=== PATIENT | female | born 1995 | race Caucasian/White ===

== ENCOUNTER → 2020-03-06 17:22 | Outpatient (CLI) | payer OTHER, SELFPAY ==
--- NOTE | ~2020-03-06 | US_ITS ---
US OB transvaginal DATE: 03/06/2020 17:56 INDICATION: Estimated gestational age determination TECHNIQUE: Real-time imaging and Doppler analysis COMPARISON: None FINDINGS: The uterus measures approximately 7 cm height, 4.3 cm AP and 5 cm transverse dimension. The central endometrial echo measures 12.6 mm. An IUP is not visualized within the endometrial cavity on this examination. There is a complex lesion in the right ovary measuring 1.2 x 1.1 x 1.5 cm. There is a hyperechoic rim . Ectopic gestation must be considered in addition to complicated cyst.. Correlation with serum beta hCG levels and short-term follow-up ultrasound examination are recommended. The right ovary measures 2.2 x 3 x 3.1 cm. The left ovary is not visualized. IMPRESSION: Complicated cystic lesion in the right ovary; differential diagnosis includes ectopic ges tation versus complex cyst. Close correlation with serum beta hCG levels and short-term follow-up ultrasound examination are puma mmended. (Dr. Da Silva attempted to leave a voicemail for Dr. Mckay was unable to do so on there [employer]. Subsequently Dr. Da Silva left a voicemail for Dr. Jha at 0022 hours on 03/07/2020, with request that he contact Dr. Mckay or her staff in the morning with the report findings.) Reviewed, dictated and finalized at [facility]. Reviewed, dictated and finalized at location [facility]. EQUIPMENT OPERATOR IMPRESSION: Complicated cystic lesion in the right ovary; differential diagnosi s includes ectopic gestation versus complex cyst. Close correlation with serum beta hCG levels and short-term follow-up ultrasoun d examination are recommended. (Dr. Da Silva attempted to leave a voicemail for Dr. Mckay was unable to do so on there voicemail system. Subsequently Dr. Da Silva left a voicemail for Dr. Jha a t 0022 hours on 03/07/2020, with request that he contact Dr. Mckay or her staf f in the morning with the report findings.)
== END ==
PROVIDERS: Visit Provider Obstetrics & Gynecology Gynecology
DX: O09.01 Supervision of pregnancy with history of infertility, first trimester (principal); O26.841 Uterine size-date discrepancy, first trimester; Z3A.00 Weeks of gestation of pregnancy not specified
CPT/HCPCS: 76817

== ENCOUNTER 2020-03-09 10:53 | Outpatient (RCR) | payer OTHER, SELFPAY | END 2020-06-05 23:59 | disposition home or self-care (01) | LOC: ANHLAB 10:53 | PROVIDERS: Visit Provider Obstetrics & Gynecology Gynecology | DX: Z32.01 Encounter for pregnancy test, result positive (principal) | CPT/HCPCS: 36415; 84702 ==

== ENCOUNTER 2020-03-12 14:34 | Outpatient (RCR) | payer OTHER, SELFPAY | END 2020-06-10 23:59 | disposition home or self-care (01) | LOC: ANHLAB 14:34 | PROVIDERS: Visit Provider Obstetrics & Gynecology Gynecology | DX: O02.81 Inappropriate change in quantitative human chorionic gonadotropin (hCG) in early pregnancy (principal); Z3A.00 Weeks of gestation of pregnancy not specified | CPT/HCPCS: 36415; 85461 ==

== ENCOUNTER → 2021-01-02 10:36 | Outpatient (CLI) | payer OTHER, SELFPAY ==
--- NOTE | ~2021-01-02 | US_ITS ---
EXAMINATION: US OB transvaginal DATE: 01/02/2021 11:20 INDICATION: Clomid . TECHNIQUE: Real-time transvaginal obstetric ultrasound. FINDINGS: No prior studies for comparison. The uterus measures 8.5 x 5.2 x 5.4 cm. There is an intrauterine gestational sac, with pole loyda ntified. The crown rump length measures .43 cm, which correlates with a estimated gestational age of 6 weeks 1 day. heart tones are identified measuring 123 BPM. No evidence for subchorionic he morrhage. There is a corpus luteal cyst of the right ovary measuring 1.9 cm. Left ovary is unremarkab le. IMPRESSION: 1. SL IUP with an EGA of 6 weeks, 1 days (EDC by current ultrasound of 08/27/2021). Reviewed, dictated and finalized at location A. DMARE FOREMAN IMPRESSION: 1. SL IUP with an EGA of 6 weeks, 1 days (EDC by current ultrasound of 2).
== END ==
PROVIDERS: Visit Provider Obstetrics & Gynecology Gynecology
DX: Z31.83 Encounter for assisted reproductive fertility procedure cycle (principal); Z3A.01 Less than 8 weeks gestation of pregnancy
CPT/HCPCS: 76817

== ENCOUNTER → 2021-04-01 11:09 | Outpatient (CLI) | payer OTHER, SELFPAY ==
--- NOTE | ~2021-04-01 | US_ITS ---
EXAMINATION: US OB /maternal detail DATE: 04/01/2021 11:38 INDICATION: survey TECHNIQUE: Multiple obstetric sonographic images performed. FINDINGS: No prior studies for comparison. There is a single living fetus in breech presentation. The placenta is anterior without placenta pre via. Placental margin 5.6 cm to the cervix. Amniotic fluid volume is normal. cardiac activity and movement is noted with a heart rate of 148 beats per minute. survey limited for evaluation of outflow tracts and kidneys due to early gestational age. The following anatomy was identified as normal: 4 chamber heart 3 vessel cord cord insertion urinary bladder stomach spine diaphragm ventricles cisterna magna cerebellum The following biometric data were obtained: BPD: 41mm corresponds to gestational age 18 weeks 3 days. Head circumference: 154 mm corresponds to gestational age 18 weeks 2 days. Abdominal circumference: 133 mm corresponds to gestational age 18 weeks 5 days. Femur length: 28 mm corresponds to gestational age 18 weeks 5 days. Head circumference to abdominal circumference ratio: 1.16 (normal range for expected gestational age is 1.09-1.27). Estimated weight: 252 grams +/- 38 grams using Hadlock method. IMPRESSION: 1: Single living intrauterine with an estimated gestational age of 18weeks 6days by initial ultrasound measurements, with an EDC of 08/27/2021 in breech presentation. Appropriate interval growth. 2. Survey limited for evaluation of ventricular outflow tracts and the kidneys. Remainder of the taran vey is unremarkable. Recommend attention to the structures on follow-up examination. Reviewed, dictated and finalized at location B. N RESOURCES GENERALIST IMPRESSION: 1: Single living intrauterine with an estimated gestational age of 18 weeks 6days by initial ultrasound measurements, with an EDC of 08/27/2021 in elizabeth ech presentation. Appropriate interval growth. 2. Survey limited for evaluation of ventricular outflow tracts and the kidneys . Remainder of the survey is unremarkable. Recommend attention to the structure s on follow-up examination.
== END ==
PROVIDERS: Visit Provider Obstetrics & Gynecology Gynecology
DX: Z34.92 Encounter for supervision of normal pregnancy, unspecified, second trimester (principal); Z3A.18 18 weeks gestation of pregnancy
CPT/HCPCS: 76805

== ENCOUNTER → 2021-04-25 10:16 | Outpatient (CLI) | payer OTHER, SELFPAY ==
--- NOTE | ~2021-04-25 | US_ITS ---
US OB limited 04/25/2021 10:47 Indication: Follow-up survey for evaluation of the kidneys and outflow tracts. Procedure: High-resolution Limited obstetrical ultrasound Comparison: Ultrasound dated 04/01/2021 Findings: There is a single living intrauterine in transverse presentation. heart rat e is 166 BPM. Placenta is anterior, 7 cm from the cervix. Amniotic fluid is subjectively normal. Limi vikram survey demonstrates normal ventricular outflow tracts, 4 chamber heart and kidneys. Impression: 1: Single living intrauterine in transverse presentation. 2: Unremarkable limited survey. Reviewed, dictated and finalized at location [facility]. Impression: 1: Single living intrauterine in transverse presentation. 2: Unremarkable limited survey.
== END ==
PROVIDERS: Visit Provider Obstetrics & Gynecology Gynecology
DX: Z36.2 Encounter for other antenatal screening follow-up (principal); Z3A.00 Weeks of gestation of pregnancy not specified
CPT/HCPCS: 76815

== ENCOUNTER 2021-07-16 16:22 | Outpatient (CLI) | payer OTHER, SELFPAY ==
[2021-07-16 16:46] VITALS: BP 151/93; PULSE 88
[2021-07-16 16:54] LABS: Basophils Percent Auto 0.1 % (0.2-1.2); Eosinophils Absolute Auto 0.1 K/mm3 (0-0.3); Eosinophils Percent Auto 0.6 % (0-4.4); Hematocrit 34.9 % (37.0-47.0); Hemoglobin 11.3 g/dL (12.0-15.0); Immature Granulocyte Absolute 0.02 K/mm3 (0.00-0.031); Immature Granulocyte Percent A 0.3 % (0-0.5); Lymphocytes Absolute Auto 1.71 K/mm3 (0.9-3.2); Lymphocytes Percent Auto 21.8 % (18.3-44.2); Mean Corpuscular HGB Conc 32.4 g/dl (32-36); Mean Corpuscular Volume 89.5 fl (80-100); Mean Platelet Volume 11.7 fl (7.4-10.4); Monocytes Absolute Auto 0.5 K/mm3 (0.1-0.6); Monocytes Percent Auto 6.9 % (2.6-8.5); Neutrophils Absolute Auto 5.5 K/mm3 (1.3-6.7); Neutrophils Percent Auto 70.3 % (45.5-73.1); Platelet Count Result 189 k/mm3 (150-375); Red Cell Distribution Width 13.6 % (11.5-14.5); White Blood Count 7.8 K/mm3 (4.5-10.0)
[2021-07-16 17:01] VITALS: BP 145/98; PULSE 90
[2021-07-16 17:03] LABS: Alanine Aminotransferase 11 U/L (6-35); Albumin Level 3.9 g/dL (3.5-5.1); Alkaline Phosphatase 118 U/L (38-126); Anion Gap 6 mmol/L (8-16); Aspartate Amino Transferase 17 U/L (14-36); Bilirubin,Total 0.2 mg/dL (0.2-1.3); Blood Urea Nitrogen 6 mg/dL (7-17); Carbon Dioxide 22 mmol/L (22-30); Chloride 105 mmol/L (98-107); Estimated Glomerular Filt Rate > 60; Glucose 82 mg/dL (65-110); Potassium 3.8 mmol/L (3.4-5.0); Sodium 133 mmol/L (137-145); Uric Acid 4.9 mg/dL (2.5-7.5)
[2021-07-16 17:05] LABS: Appearance Urine Clear (Clear); Bilirubin Urine Negative (Negative); Blood Urine Negative (Negative); Color Urine Yellow (Yellow); Glucose Urine UA Negative (Negative); Ketones Urine Negative (Negative); Leukocyte Esterase Ur 1+ LEU/UL (NEGATIVE); Nitrate Urine Negative (Negative); Protein Urine Trace mg/dL (Negative); Specific Grav Ur 1.015 (1.001-1.035); Urobilinogen Urine 0.2 mg/dL (<2.0)
[2021-07-16 17:09] LABS: Bacteria Urine Trace /hpf; RBC Urine 0-2 /hpf (0-2); Squamous Epithelial Cell Urine Many /hpf (Few)
[2021-07-16 17:12] LABS: Add Urine Microscopic? YES
[2021-07-16 17:15] LABS: Creatinine Urine 19.9 mg/dL; Total Protein Urine Random 33 mg/dL; Ur Ttl Prot Creatinine Ratio 1.66 mg/mg (0-0.20)
[2021-07-16 17:16] VITALS: BP 145/95; PULSE 80
--- NOTE | 2021-07-16 17:31 | PC.NURSE ---
1720- Spoke with Dr. Mckay, labs, BP's and NST reviewed. Orders to discharge to home with 24 hour urine and patient to be off work until results come in.
== END 2021-07-16 17:33 | disposition home or self-care (01) ==
LOC: ANHOBOP 16:27 → ANHOBPP 07-22 08:18
PROVIDERS: Visit Provider Obstetrics & Gynecology Gynecology
DX: O13.9 Gestational [pregnancy-induced] hypertension without significant proteinuria, unspecified trimester (principal); Z3A.00 Weeks of gestation of pregnancy not specified
CPT/HCPCS: 36415; 59025; 80053; 81001; 82570; 84156; 84550; 85025; 87086; 87088; 99199

== ENCOUNTER 2021-07-17 18:09 | Outpatient (NON) | payer OTHER, SELFPAY ==
[2021-07-17 18:13] VITALS: BMI 37.3
[2021-07-17 20:24] LABS: Collection Time Urine 24 HOURS
[2021-07-17 20:37] LABS: Creatinine Urine 48.4 mg/dL; Patient Weight 185 Lbs; Total Protein Urine Random 20 mg/dL
[2021-07-17 20:44] LABS: Creatinine Clearance Urine 116.8 ml/min (75-125); Total Protein Urine 24 Hr 500 mg/24hr (28-141); Total Volume 24 Hour Urine 2500 ml
== END 2021-07-17 18:10 | disposition home or self-care (01) ==
LOC: ANHOBOP 18:10
PROVIDERS: Visit Provider Obstetrics & Gynecology Gynecology
DX: R03.0 Elevated blood-pressure reading, without diagnosis of hypertension (principal)
CPT/HCPCS: 81050; 82575; 84156

== ENCOUNTER 2021-07-18 13:06 | Outpatient (CLI) | payer OTHER, SELFPAY ==
--- NOTE | ~2021-07-18 | US_ITS ---
EXAMINATION: 1. US OB follow up 2. US umbilical doppler DATE: 07/18/2021 14:08 INDICATION: Preeclampsia. Third trimester. TECHNIQUE: Real-time ultrasound of the pelvis was performed. COMPARISON: Ultrasound 04/25/2021 FINDINGS: There is a single living fetus in vertex presentation. The placenta is anterior. heart rate is 155 beats per minute (bpm). The amniotic fluid index is 14.0 cm, which is normal. The following biometric data were obtained: Biparietal diameter (BPD): 8.0 cm; head circumference (HC): 29.8 cm; abdominal circumference (AC): 28 .7 cm; femur length (FL): 6.5 cm. These measurements are concordant. Estimated weight is 2074 g +/- 311 g, which correlates with the 16th percentile when 08/29/21 is used as estimated date of delivery. As single measurements, these parameters are each equal to the following estimated gestational ages: BPD: 32 weeks 2 days. HC: 33 weeks 0 days. AC: 32 weeks 5 days. FL: 33 weeks 3 days. estimated gestational age based solely on measurements from this exam is 32 weeks 6 days +/- 2 weeks 2 days. Umbilical artery pulsed Doppler demonstrates a peak systolic to end-diastolic velocity ratio (S/D rat io) of 3.1 (5th percentile = 2.07, 95th percentile = 3.53). IMPRESSION: 1. Single living fetus in vertex presentation. 2. Estimated weight is 2074 g +/- 311 g, which correlates with the 16th percentile when 2 is used as estimated date of delivery. 3. Normal umbilical artery Doppler. Reviewed, dictated and finalized at location A. IMPRESSION: 1. Single living fetus in vertex presentation. 2. Estimated weight is 2074 g +/- 311 g, which correlates with the 16th percentile when 08/29/21 is used as estimated date of delivery. 3. Normal umbilical artery Doppler.
== END 2021-07-18 13:07 | disposition home or self-care (01) ==
PROVIDERS: Visit Provider Obstetrics & Gynecology Gynecology
DX: O14.93 Unspecified pre-eclampsia, third trimester (principal); Z3A.32 32 weeks gestation of pregnancy
CPT/HCPCS: 76816; 76820; 96372; J0702

== ENCOUNTER 2021-07-19 11:59 | Outpatient (RCR) | payer OTHER, SELFPAY ==
[2021-07-18] MEDS: BETAMETHASONE SOD PHOS/ACETATE 30 MG/5 ML VIAL 12 MG IM (12:19)
--- NOTE | 2021-07-18 12:30 | PC.NURSE ---
Patients brought blood pressure cuff from home and used to compare our readings. Pts cuff not consistent with our our reading. Pt. states she borrowed cuff from a friend. Pt states she will get a new cuff. Update to Dr. Mckay. Pt instructed to return tomorrow for NST and second Celestone injection.
[2021-07-19 12:26] VITALS: BP 136/80; PULSE 96
[2021-07-19] MEDS: BETAMETHASONE SOD PHOS/ACETATE 30 MG/5 ML VIAL 12 MG IM (12:27)
== END 2021-07-19 12:30 | disposition home or self-care (01) ==
LOC: ANHOBOP 11:59
PROVIDERS: Visit Provider Obstetrics & Gynecology Gynecology
DX: O26.899 Other specified pregnancy related conditions, unspecified trimester (principal); R03.0 Elevated blood-pressure reading, without diagnosis of hypertension; Z3A.00 Weeks of gestation of pregnancy not specified
CPT/HCPCS: 59025; 96372; J0702

== ENCOUNTER 2021-08-04 16:48 | Inpatient (IN) | payer OTHER, SELFPAY ==
[2021-08-04] VITALS (14 sets, daily range): BP systolic 115–156; BP diastolic 69–101; PULSE 94–133; TEMP 36.9–37; BMI 36.5
--- NOTE | 2021-08-04 17:11 | WPDANESEPP ---
Anes - Eval Pre Procedure Procedure: labor epidural Date/Time: 08/04/21 17:11 Pre Op Diagnosis: Pre eclampsia Patient Data Age: 25 Gender: F Height: Weight: Last Vital Signs Pulse 133 H 08/04/21 17:06 BP 156/101 H 08/04/21 17:06 Allergies Allergy/AdvReac Type Severity Reaction Status Date / Time peanut Allergy Mild facial Verified 07/31/21 12:35 numbness Home Medications Medication Instructions Recorded Confirmed Type aspirin 81 mg chewable tablet 81 mg PO DAILY 07/19/21 07/19/21 History cholecalciferol (vitamin D3) 50 2,000 unit PO DAILY 07/19/21 07/19/21 History mcg (2,000 unit) capsule (Vitamin D3) vit no.95-ferrous 1 tablet PO DAILY 07/19/21 07/19/21 History fumarate 28 mg-folic acid 800 mcg tablet () Patient hx anesthesia problems: none Family hx anesthesia problems: none Results Review: All pre-operative results and documents have been reviewed as part of the pre-operative evaluation. [facility] Past Medical History Medical History Gestational hypertension Family History Family History Father Diabetes mellitus Hypertension Mother Hypertension Other Breast cancer in female Social History Social History Second hand tobacco smoke exposure: No Substance use: never Spiritual care concerns: No Exam Day of Procedure 08/04/21 17:11 Patient weight: overweight Heart: regular rate and rhythm Lungs: clear to auscultation Airway: Mallampati scale class II Neurological: alert and oriented
--- NOTE | 2021-08-04 17:29 | LDADM ---
This patient, Christine Ron, was admitted to Labor/Delivery/Recovery 108 on 08/04/21 at 16:48. Plans for labor, pain management and were discussed with patient. Patient/family oriented to hospital policies and general routines including ID bracelet, bed and alarms, visiting hours, pain management, procedures, bathroom and other care routines, personal items, smoking policy, room service/diet and guest tray routines, infant security routines, and visiting hours. Patient/Family are encouraged to report perceived risks to care and to ask questions if they do not understand what they are told or what they should do. See OBIX for further documentation.
[2021-08-04 17:57] LABS: Basophils Percent Auto 0.3 % (0.2-1.2); Eosinophils Absolute Auto 0.1 K/mm3 (0-0.3); Eosinophils Percent Auto 0.6 % (0-4.4); Hematocrit 33.5 % (37.0-47.0); Hemoglobin 11.1 g/dL (12.0-15.0); Immature Granulocyte Absolute 0.04 K/mm3 (0.00-0.031); Immature Granulocyte Percent A 0.5 % (0-0.5); Lymphocytes Absolute Auto 1.58 K/mm3 (0.9-3.2); Lymphocytes Percent Auto 19.9 % (18.3-44.2); Mean Corpuscular HGB Conc 33.1 g/dl (32-36); Mean Corpuscular Hemoglobin 29.2 pg (26-34); Mean Corpuscular Volume 88.2 fl (80-100); Mean Platelet Volume 12.2 fl (7.4-10.4); Monocytes Absolute Auto 0.6 K/mm3 (0.1-0.6); Monocytes Percent Auto 6.9 % (2.6-8.5); Neutrophils Absolute Auto 5.7 K/mm3 (1.3-6.7); Neutrophils Percent Auto 71.8 % (45.5-73.1); Platelet Count Result 151 k/mm3 (150-375); Red Cell Distribution Width 14.5 % (11.5-14.5)
[2021-08-04 18:08] LABS: Alanine Aminotransferase 12 U/L (6-35); Albumin Level 3.6 g/dL (3.5-5.1); Alkaline Phosphatase 133 U/L (38-126); Anion Gap 7 mmol/L (8-16); Aspartate Amino Transferase 18 U/L (14-36); Bilirubin,Total 0.1 mg/dL (0.2-1.3); Blood Urea Nitrogen 9 mg/dL (7-17); Carbon Dioxide 21 mmol/L (22-30); Chloride 106 mmol/L (98-107); Estimated Glomerular Filt Rate > 60; Glucose 100 mg/dL (65-110); Potassium 3.6 mmol/L (3.4-5.0); Sodium 134 mmol/L (137-145); Uric Acid 6.5 mg/dL (2.5-7.5)
[2021-08-04] MEDS: DINOPROSTONE 10 MG VAG INSERT VAGINAL (18:22)
[2021-08-04] MEDS: FAMOTIDINE 20 MG/2 ML VIAL IV PUSH (21:43)
[2021-08-05] VITALS (158 sets, daily range): BP systolic 105–198; BP diastolic 43–171; PULSE 81–253; RESP 18; TEMP 36.1–37.1; O2SAT 96–100
--- NOTE | 2021-08-05 07:52 | WPDOBADMIT ---
Obstetrics - Admit Note Admission Note: record reviewed. No pertinent additions to the history and/or any subsequent changes in the physical findings that are not consistent with the expected course of the were found. Additions to the history and/or subsequent changes in the physical findings follow. None.
--- NOTE | 2021-08-05 07:52 | PM.OBPNLAB ---
Pain Control Date/time seen: 08/05/21 07:40 Pelvic Exam Dilation (cm): 0 (Fingertip) Effacement (%): 75 station: -3 Amniotic membrane status: Intact Comments: Able to palpate head. Contractions Monitor mode: External Contraction pattern: Irregular Contraction intensity: Moderate Assessment and Plan Assessment: induction ongoing Comments: Patient made good change with 1 Cervidil. She is having irregular contractions that palpate mild to moderate. She came off the monitor prior to 7:00 a.m.. That portion of the tracing is category 1. An irregular contraction pattern was noted, of which paid age is healing about 1 contraction every 10 minutes. Of care with Christine and her partner. Discussed options for Cytotec placement versus Domínguez balloon placement. This time will proceed with Cytotec. And re-evaluate after the next cervical exam. She does report a mild headache but attributes that to not sleeping well last night. Would recommend Tylenol as needed for headache pain. Blood pressures have been normal to mild range. She denies right upper quadrant pain visual changes or any increase in edema. Anticipate cervical dilation and a vaginal .
--- NOTE | 2021-08-05 10:59 | PM.OBPNLAB ---
Pain Control Date/time seen: 08/05/21 10:59 Pain control: tolerating well Pelvic Exam Dilation (cm): 2 (Fingertip) Effacement (%): 75 station: -2 Amniotic membrane status: Ruptured (AROM with clear fluid) Contractions Monitor mode: External Contraction pattern: Irregular Contraction intensity: Moderate Status status: Category l Assessment and Plan Plan: begin patient augmentation (if needed in 1 hour) Comments: POPEYE Dumont updated
[2021-08-05] MEDS: LACTATED RINGERS 1,000 ML 125 ML IV CONT ×3 (11:40→15:52)
[2021-08-05] MEDS: LABETALOL HCL INJ 100 MG/20 ML VIAL 20 MG IV PUSH (11:57)
[2021-08-05] MEDS: OXYTOCIN 30 UNITS/NS 500 ML 30 UNITS/500 ML BAG IV CONT (14:59)
[2021-08-05] MEDS: hydrOXYzine HCl 50 MG/ML VIAL 25 MG IM (15:43)
--- NOTE | 2021-08-05 15:46 | PC.NURSE ---
Vistaril order for a 1 time dose. Ordered as a PRN dose. One dose given and then discontinued.
[2021-08-05] MEDS: ONDANSETRON INJ 4 MG/2 ML VIAL IV PUSH (15:50)
[2021-08-05 16:28] LABS: Rapid Plasma Reagin Non-Reactive (NonReactive)
--- NOTE | 2021-08-05 17:33 | P.PNOB_ITS ---
Pain Control Date/time seen: 08/05/21 17:28 Pelvic Exam Amniotic membrane status: Ruptured (AROM with clear fluid) Contractions Monitor mode: External Contraction intensity: Moderate Assessment and Plan Pitocin rate (mU/min): 8 Comments: Patient resting comfortably in bed. Family member present for support. The p atient reports occasional pain in her left groin area but overall has much improvement in discomfort since epidural placement. Recent cervical exam per RN is 6-7 cm. Patient not feeling any rectal pressure at this time. heart tracing category 2 with occasional variable dececels but overall reassured by moderate variability. Contractions not tracing the toco at this time. Strong contraction palpated. Patient reports feeling contractions every few minutes. RN to adjust toco p.r.n. to achieve adequate tracing. Can place IUPC as needed but patient has made good cervical change to this point. Patient feels better after dose of hydroxyzine. Reports decreased anxiety. Blood pressure is normal range at this time. No headache visual changes, right upper quadrant pain, or significant change in edema. Continue current plan of care and anticipate vaginal .
[2021-08-05] MEDS: LIDOCAINE HCL 1% LOCAL INJ 10 ML VIAL (19:47)
--- NOTE | 2021-08-05 19:56 | PM.OBPRVD ---
OB - Delivery Note Procedure Delivery date: 08/05/21 Events: Intrauterine Growth Restriction (IUGR) and Preeclampsia w/o severe features Induction method: AROM, Per Pitocin Protocol and Per Cervidil Protocol Delivery monitor: External FHT and External Uterine Route of delivery: Laceration Description: Perineal - 2nd Degree (up to left labia) Delivery repair: vicryl (3-0) Specimen: Yes (placenta) Quantitative Blood Loss (ml): 100 Anesthesia type: Local Disposition: Floor Baby Date of : 08/05/21 Weeks of gestation at delivery: 36 gender: Female Weight (pounds): 4 Weight (ounces): 14 presentation: vertex position: Right Occiput Anterior Placenta delivery description: Spontaneous Cord Vessel Description: 3 Vessels score one minute: 9 score five minutes: 9
--- NOTE | 2021-08-05 19:58 | PM.OBDSVD ---
DS: Admitting Diagnosis Discharge Date 08/07/21 Admitting Diagnosis IUP 36 3/7 wks Preeclampsia IUGR DS: Discharge Diagnosis Discharge Diagnosis (1) Preeclampsia: Code(s): O14.90 - Unspecified pre-eclampsia, unspecified trimester Status: Acute (2) (normal spontaneous vaginal delivery): Code(s): O80 - Encounter for full-term uncomplicated delivery Status: Acute OB - DS: Summary OB Procedures : NST and Ultrasound OB Procedures Intrapartum: Spontaneous Vag Delivery OB Procedures: : None Peripartum Data Infant Delivery Method: Natural Vaginal Laceration Description: Perineal - 2nd Degree complications: none Status at Discharge Functional status at discharge: independent ambulation Overall status at discharge: patient is progressing back to baseline Time Spent with Patient Time attestation: Total time spent providing and/or coordinating discharge services: DS: Data Data Completed and Pending Labs on day of discharge: Labs from last 24 hours 08/04/21 17:48 RPR Non-reactive Discharge Plan Discharge Attending physician on discharge: Andie Mckay Discharging Clinician: Andie Mckay Anticipated Discharge Date/Time: 08/07/21 19:59 Patient Disposition: Home, Self-Care Activity: may shower, may drive after 2 weeks and pelvic rest Diet: regular Discharge Instructions: Education: Mom and Baby Guide Given to: Mother Follow-Up: Call your delivering provider's office for an appointment to be seen in: 1 week BP check and 6 weeks PP Mom and baby should come to the [facility] for the follow-up appointment. Appointment Date/Time: August 08, 2021 at 10:00 am What to expect at your follow-up visit: Blood Pressure Check Call [phone] if you are unable to keep your appointment time. BREAST CARE: * Wear a snug supportive bra. * For engorgement discomfort: Breast Feeding: * Apply warm moist washcloths * Express milk as needed to relieve engorgement * Wear loose clothing Bottle Feeding: * May apply ice packs * For sore nipples: * Identify correct latch-on * Apply warm moist washcloths before and after nursing * Air dry nipples after nursing * May apply Lansinoh cream to nipples PERINEAL CARE: * Until bleeding stops, use your emilie bottle after urinating * Change your pad frequently throughout the day * You may take sitz baths several times a day (fill your bathtub with warm water and soak for 20 minutes.) Do NOT bathe in the water * No tub baths until seen by your physician - You may shower ACTIVITY: * Rest as much as possible. * Do not exercise or lift anything heavier than your baby (such as laundry or other children.) * Avoid stairs or driving as much as possible. * Do not put anything into the vagina. No douching, tampons, or sexual activity until seen by physician. NOTIFY PHYSICIAN IF YOU HAVE ANY QUESTIONS OR IF ANY OF THE FOLLOWING SYMPTOMS OCCUR: * If your perineum becomes red, swollen, or more painful than what you have experienced in the hospital. * If your vaginal bleeding becomes foul smelling. * If your vaginal bleeding becomes more heavy than a period or if your bleeding changes from pink to bright red. However, you may pass an occasional walnut-sized clot once or twice for the first week . * If you experience a sharp, shooting pain in you calves. * If you discover a hard, reddened area on your breast or if you experience flu-like symptoms. * If you have a fever of 100.4 or greater DIET: * Eat regular, well-balanced meals. * Drink plenty of fluids daily. If , drink to thirst. Patient Instructions: Antibiotic Form Stand Alone Forms: General Discharge Information Follow-up/Referrals: Andie Mckay MD [Physician] - 1 Week (1 week for BP check and 6
[2021-08-05] MEDS: OXYTOCIN 30 UNITS/NS 500 ML 30 UNITS/500 ML BAG 125 UNITS IV CONT (20:11)
[2021-08-05] MEDS: IBUPROFEN 600 MG TABLET PO (21:23)
[2021-08-05] MEDS: WITCH HAZEL 40 PADS 1 PAD TOPICAL (21:24)
[2021-08-05] MEDS: BENZOCAINE 20% AER SPR (*SP) 56 GM CAN 1 SPRAY TOPICAL (21:24)
--- NOTE | 2021-08-05 22:23 | ADMGEN ---
This patient, Christine Ron, was admitted to OB 2nd Floor Room 282-00. Patient/family oriented to hospital policies and general routines including ID bracelet, bed and alarms, visiting hours, pain management, procedures, bathroom and other care routines, personal items, smoking policy, room service/diet, and visiting hours. Information on how to activate the Rapid Response Team has been discussed. Patient/Family are encouraged to report perceived risks to care and to ask questions if they do not understand what they are told or what they should do.
[2021-08-06] VITALS: BP 116/74; PULSE 107; RESP 20; TEMP 37.1
[2021-08-06] MEDS: IBUPROFEN 600 MG TABLET PO ×3 (03:16→19:25)
[2021-08-06] MEDS: WITCH HAZEL 40 PADS 1 PAD TOPICAL (03:18)
[2021-08-06] MEDS: LANOLIN (LANSINOH) 7.5 GM CREAM 1 APPLIC TOPICAL (03:18)
[2021-08-06 04:00] VITALS: BP 128/64; PULSE 98; RESP 18; TEMP 36.7
[2021-08-06 04:35] LABS: Hematocrit 30.2 % (37.0-47.0); Hemoglobin 9.8 g/dL (12.0-15.0)
[2021-08-06] MEDS: ACETAMINOPHEN 325 MG TABLET 650 MG PO ×3 (07:11→16:21)
[2021-08-06 07:25] VITALS: BP 121/80; PULSE 75; RESP 16; TEMP 37.1; O2SAT 98
--- NOTE | 2021-08-06 07:42 | PM.OBPNVD ---
OB - PN: Subj Subjective Date/time seen: 08/06/21 07:42 Patient comments: no complaints, pain well controlled and other (no PIH sx) OB - PN: Obj Data Labs CBC & Chem 7: 08/06/21 03:20 08/04/21 17:48 Labs: Laboratory Results - last 24 hr 08/04/21 08/06/21 17:48 03:20 Hgb 9.8 L Hct 30.2 L RPR Non-reactive OB - PN A/P Assessment and Plan (1) Preeclampsia: Code(s): O14.90 - Unspecified pre-eclampsia, unspecified trimester Status: Acute Assessment and Plan: BP good since delivery. No diuresis yet. No Sx. Plan day: 1 Plan: routine care Time Spent With Patient Time: Total time spent is greater than 50% in coordination of care (as documented) at patient's floor/unit and/or counseling patient: Exam : Bimanual exam- vagina & uterus: other (Uterus firm, nt @U)
[2021-08-06] MEDS: MULTIVIT/MIN/PREN/FOL AC/IRON TABLET 1 TAB PO (09:37)
[2021-08-06] MEDS: POLYSACCHARIDE IRON COMPLEX 150 MG CAPSULE PO ×2 (09:37→16:20)
[2021-08-06] MEDS: DOCUSATE SODIUM 100 MG CAPSULE ×2 (10:08→16:21)
--- NOTE | 2021-08-06 11:30 | PC.NURSE ---
[id number] Introductions were made, then consulted with patient to assess needs related to . Mother led the conversation with her experience feeding her so far with no latch and pumping for a milk production. Discussed education regarding 36 6/7 and how that pertains to stimulating to breastfeed, feeding cues, efforts and feeding to grow. Infant is in the nursery at this time. Mother voiced understanding of responsive feedings, stimulating with skin to skin, hand expressed colostrum, talking to to encourage if it has been 2 -3 hours since the start of the last , to call if infant does not latch or there is discomfort with . Mother plans to call later when is back with her. Reported to the primary RN.
[2021-08-06 12:07] VITALS: BP 131/90; PULSE 93; RESP 16; TEMP 37.5; O2SAT 98
[2021-08-06 15:40] VITALS: BP 110/63; PULSE 95; RESP 18; TEMP 36.4
[2021-08-06 19:00] VITALS: BP 124/83; PULSE 91; RESP 18; TEMP 36.9
[2021-08-07] MEDS: ACETAMINOPHEN 325 MG TABLET 650 MG PO ×2 (00:04→09:49)
[2021-08-07] MEDS: IBUPROFEN 600 MG TABLET PO ×2 (03:11→09:50)
[2021-08-07 03:27] VITALS: BP 125/85; PULSE 84; RESP 18; TEMP 36.6
--- NOTE | 2021-08-07 08:00 | PC.NURSE ---
Pt introductions made and plan of care discussed per post , pain management, breast/bottle feeding, daily care activities, PIH and pending discharge to home. PT received such instructions per one to one discussion, mom baby care guide and demonstrations this shift. PT and spouse both recipients of such instructions and no barriers to learning identified at this time. PT verbalized understanding of such care.
--- NOTE | 2021-08-07 08:00 | PM.OBPNVD ---
OB - PN: Subj Subjective Date/time seen: 08/07/21 08:00 Patient comments: pain well controlled and tolerating diet baby status: doing well and nursing well OB - PN: Obj Data Labs CBC & Chem 7: 08/06/21 03:20 08/04/21 17:48 OB - PN A/P Plan day: 2 Plan: discharge home Time Spent With Patient Time: Total time spent is greater than 50% in coordination of care (as documented) at patient's floor/unit and/or counseling patient: Review of Systems Review of Systems: All systems reviewed & are unremarkable except as noted in HPI and below Constitutional: Constitutional: Reports no additional constitutional complaints Genitourinary: Comments: Urinating without difficulty. Exam Narrative: Alert and oriented. Mood is pleasant and cooperative. Urinating without difficulty. Denies passing any large clots. Perineum with minimal edema. Const: General: no acute distress Orientation/consciousness: patient oriented x3 Limitations: no limitations Resp: Effort & Inspection: normal respiratory effort Auscultation: clear to auscultation bilaterally Cardio: Rate: regular rate GI: Inspection: normal to inspection Neuro: General: patient oriented x3 Extrem: General: normal to inspection Psych: Appearance: grossly normal Mental Status: mental status grossly normal Affect: normal affect Thought process: Normal thought process present
--- NOTE | 2021-08-07 08:01 | P.DS_ITS ---
DS: Admitting Diagnosis Discharge Date 08/07/2021 Admitting Diagnosis IUP. Preeclampsia DS: Discharge Diagnosis Discharge Diagnosis Plan s/p OB - DS: Summary OB Procedures : PIH Mgmt and Ultrasound OB Procedures Intrapartum: Spontaneous Vag Delivery OB Procedures: : None Peripartum Data Infant Delivery Method: Natural Vaginal Laceration Description: Perineal - 2nd Degree Episiotomy description: Midline complications: none Status at Discharge Functional status at discharge: independent ambulation Time Spent with Patient Time attestation: Total time spent providing and/or coordinating discharge services: Exam Narrative: Alert and oriented. Mood is pleasant and cooperative. Urinating without difficulty. Denies passing any large clots. Perineum with minimal edema. No DAVIS, visual changes, RUQ pain, or change in edema. Const: General: no acute distress Orientation/consciousness: patient oriented x3 Limitations: no limitations Resp: Effort & Inspection: normal respiratory effort Auscultation: clear to auscultation bilaterally Cardio: Rate: regular rate GI: Inspection: normal to inspection Neuro: General: patient oriented x3 Extrem: General: normal to inspection Psych: Appearance: grossly normal Mental Status: mental status grossly normal Affect: normal affect Thought process: Normal thought process present DS: Data Data Completed and Pending Pending studies at discharge: Pending at discharge 08/05/21 19:46 Surgical [PTH] Routine Discharge Plan Discharge Attending physician on discharge: Andie Mckay Discharging Clinician: Andie Mckay Anticipated Discharge Date/Time: 08/07/21 19:59 Patient Disposition: Home, Self-Care Activity: may shower, may drive after 2 weeks and pelvic rest Diet: regular Patient Instructions: Antibiotic Form Stand Alone Forms: General Discharge Information Follow-up/Referrals: Andie Mckay MD [Physician] - 1 Week (1 week for BP check and 6 wk) Debra Woody CNM [Certified Nurse Export Specialist] - (6 weeks) Discharge Medications: New norethindrone (contraceptive) 0.35 mg tablet 0.35 mg PO DAILY Qty: 84 3RF polysaccharide iron complex 150 mg iron Capsule 150 mg PO BIDWM 45 Days Qty: 90 0RF ibuprofen 600 mg Tablet 600 mg PO Q6H PRN (Reason: Cramping) 14 Days Qty: 30 0RF norethindrone (contraceptive) [Ortho Micronor] 0.35 mg tablet 0.35 mg PO DAILY Qty: 3 0RF Continued cholecalciferol (vitamin D3) [Vitamin D3] 50 mcg (2,000 unit) Capsule 2,000 unit PO DAILY PNV cmb#[id number]-ferrous fumarate-FA [] 28 mg iron- 800 mcg Tablet 1 tablet PO DAILY Discontinued aspirin 81 mg Tablet,Chewable 81 mg PO DAILY Date of admission: 08/04/21 16:48 Primary Care Provider: PHYSICIAN,FOREST RANGER TECHNICIAN Admitting Provider: Andie Mckay Attending physician on admission: Andie Mckay Condition: Stable
[2021-08-07 08:35] VITALS: BP 132/80; PULSE 110; RESP 18; TEMP 36.4; O2SAT 100
[2021-08-07] MEDS: DOCUSATE SODIUM 100 MG CAPSULE PO (09:48)
[2021-08-07] MEDS: MULTIVIT/MIN/PREN/FOL AC/IRON TABLET 1 TAB PO (09:48)
[2021-08-07] MEDS: POLYSACCHARIDE IRON COMPLEX 150 MG CAPSULE PO (09:49)
--- NOTE | 2021-08-07 09:49 | WPDANLDPN2 ---
Anes-Prog Note L&D Date/Time: 08/07/21 09:49 Neuro status: Neuro function grossly intact. Vital Signs: Last Vital Signs Temp 36.6 C 08/07/21 03:27 Pulse 84 08/07/21 03:27 Resp 18 08/07/21 03:27 BP 125/85 08/07/21 03:27 Pulse Ox 98 08/06/21 12:07 O2 Del Method Room Air 08/06/21 19:00 Pain score (VAS): 0 I/O: Intake & Output 08/06/21 08/07/21 08/07/21 23:59 07:59 15:59 Intake Total 1300 2840 Output Total 1875 1950 Balance -575 890 Patient feedback: Patient satisfied with anesthetic care.
--- NOTE | 2021-08-07 12:30 | PC.NURSE ---
PT received discharge instructions per protocol and verbalized understanding of such care.
[2021-08-07 13:00] VITALS: BP 121/79; PULSE 105; RESP 18; TEMP 36.8; O2SAT 100
--- NOTE | 2021-08-07 13:13 | PC.NURSE ---
PT discharged to home ambulatory accompanied by spouse and and taken to waiting car. Follow up appts confirmed
--- NOTE | 2021-08-07 14:40 | PC.NURSE ---
[id number] Mother states just fed and she will call out for the next feeding. [phone] Consulted with patient to assess needs related to . Mother led conversation with her experience with feeding baby so far. Mother works well with her infant with encouragement, has infant skin to skin, and infant is sleeping. Encouraged mothers action with reviewing education of the benefits of skin to skin, responding to feeding cues, frequencies of feeding 8-12 times in 24 hours (approximately 2-3 hours), duration of feedings, milk production, intake/output feeding sheet and signs of adequate intake encouraging swallowing at the breast along with assertive action and understanding of a late- infant. Reviewed positioning and alignment, supporting breast, off-centered (asymmetrical latch) and leading with the chin with big open wide gape. latched optimally to the right breast in football position. Mother denies pain. was stimulated to suck and swallow at the breast which are rare. Reinforced teaching of pumping 8 times in 24 hours, along with supplementing until milk comes in . Mother voiced understanding the visual difference between effective and ineffective . After 8-10 min detached after falling asleep. Nipple was slightly misshaped. Reviewed encouraging big wide open gape for optimal latch, how to visualize rounded cheek line, lips flanged, with rocking motion for effectively . Education given to mother of how to visualize suck/swallow ratios and drinking at the breast. Infant is sleepy, has a weak suck, falls off the breast, and mother is encouraged to readjust, change position of baby and latch effectively. latched maritza the left breast using football positioning. was able to maintain latch without discomfort to mother for 10 min. Nipple care reviewed with optimal latch and good positioning. Mother is prepared to feed her with attempting to breastfeed/pump/supplement. Reminded parents to use good handwashing technique to prevent infection. Mother is feeding appropriately for growth of and understands stimulating to eat if needed. Infant has had appropriate feedings in the last 24 hours meets the outcomes for weight, output and jaundice at this time. Reinforced understanding of milk production, transition of milk, signs of adequate intake, prevention/relief of engorgement, responsive after visualizing feeding cues, the different methods of stimulating to breastfeed 2-3 hours after the start of the last feeding, community resources, medication information reviewed per [employer] and when to call a provider using the resource of the mom and baby guide/[facility] website. Mother voiced understanding of the education shared.
== END 2021-08-07 13:13 | disposition home or self-care (01) | DRG 807 ==
LOC: ANHLDR 08-05 20:00 → ANHOB2 08-05 23:09
PROVIDERS: Admitting Provider Obstetrics & Gynecology Gynecology; Visit Provider Obstetrics & Gynecology Gynecology
DX: O14.14 Severe pre-eclampsia complicating childbirth (principal); Z37.0 Single live birth; O76 Abnormality in fetal heart rate and rhythm complicating labor and delivery; O36.5930 Maternal care for other known or suspected poor fetal growth, third trimester, not applicable or unspecified; O70.1 Second degree perineal laceration during delivery; Z3A.36 36 weeks gestation of pregnancy
CPT/HCPCS: 36415; 80053; 84550; 85014; 85018; 85025; 86592; 86850; 86900; 86901; 88307; A9270; J2405; J2590; J2795; J3410; J7120

== ENCOUNTER → 2023-02-27 12:44 | Outpatient (CLI) | payer BC, SELFPAY ==
--- NOTE | ~2023-02-27 | US_ITS ---
EXAMINATION: US OB <=14 wk fetus w TV DATE: 02/27/2023 13:09 INDICATION: Inconclusive viability during first trimester TECHNIQUE: Real-time pelvic transabdominal and transvaginal ultrasound was performed. COMPARISON: None. FINDINGS: The uterus measures 9.1 x 5.3 x 3.6 cm. No intrauterine gestational sac is identified. The endometrial thickness measures 14 mm. The right ovary measures 2.9 x 3.0 x 2.8 cm. The left ovary luis sures 2.5 x 1.2 x 2.0 cm. There is normal vascular flow in the ovaries. There is no free fluid in the pelvis. IMPRESSION: 1. of unknown location. Although no intrauterine gestational sac is seen, this may be due t o early gestation. If the patient is clinically stable, recommend followup with serial beta-hCG and u ltrasound. Reviewed, dictated and finalized at location F. HT OPERATIONS COORDINATOR IMPRESSION: 1. of unknown location. Although no intrauterine gestational sac is s een, this may be due to early gestation. If the patient is clinically stable, r ecommend followup with serial beta-hCG and ultrasound.
== END ==
PROVIDERS: PCP Nurse Practitioner Family; Visit Provider Obstetrics & Gynecology Gynecology
DX: O36.80X0 Pregnancy with inconclusive fetal viability, not applicable or unspecified (principal); Z3A.00 Weeks of gestation of pregnancy not specified
CPT/HCPCS: 76801; 76817

== ENCOUNTER 2024-10-14 10:10 | Outpatient (CLI) | payer SELFPAY ==
--- NOTE | ~2024-10-14 | US_ITS ---
EXAMINATION: US OB <=14 wk fetus w TV DATE: 10/14/2024 10:33 INDICATION: Establish dating of during first trimester. Prior spontaneous . TECHNIQUE: Real-time pelvic ultrasound utilizing both a transvaginal and transabdominal probe was performed. The interpreting radiologist was not present for the study. COMPARISON: None. FINDINGS: The uterus measures 11.1 x 7.0 x 5.1 cm. There is an intrauterine gestational sac. A yolk sac and pole are identified. The crown rump length measures 6.5 mm, which correlates with an estimated gestational age of 6 weeks and 4 days. heart motion is identified measuring 153 beats per minute (bpm) by M-mode Doppler. Small subchorionic hematoma measuring 4.6 x 1.6 x 0.6 cm. The right ovary measures 3.0 x 2.7 x 2.5 cm. Vascular flow identified in the right ovary on color Doppler. The left ovary is not visualized. There is no free fluid in the pelvis. IMPRESSION: 1. Single living fetus with heart rate of 153 bpm. 2. Gestational age by ultrasound of 6 weeks 4 day(s) +/- 4 day(s) with ultrasound estimated date of delivery (JOAN) of 06/05/2025. 3. Small subchorionic hematoma. Reviewed, dictated and finalized at location A. IMPRESSION: 1. Single living fetus with heart rate of 153 bpm. 2. Gestational age by ultrasound of 6 weeks 4 day(s) +/- 4 day(s) with ultraso und estimated date of delivery (JOAN) of 06/05/2025. 3. Small subchorionic hematoma.
== END 2024-10-14 10:11 | disposition home or self-care (01) ==
PROVIDERS: PCP Obstetrics & Gynecology Gynecology; Visit Provider Obstetrics & Gynecology Gynecology
DX: O26.21 Pregnancy care for patient with recurrent pregnancy loss, first trimester (principal); Z3A.01 Less than 8 weeks gestation of pregnancy
CPT/HCPCS: 76801; 76817

== ENCOUNTER 2024-11-07 10:50 | Outpatient (CLI) | payer SELFPAY ==
--- NOTE | ~2024-11-07 | US_ITS ---
EXAMINATION: US OB <= 14 weeks fetus DATE: 11/07/2024 11:15 INDICATION: Subchorionic hematoma in the first trimester of TECHNIQUE: Real-time pelvic ultrasound utilizing transabdominal probe was performed. The interpreting radiologist was not present for the study. COMPARISON: 10/14/2024 FINDINGS: The uterus measures 13.4 x 10.0 x 6.9 cm. There is an intrauterine gestational sac. A yolk sac and pole are identified. The crown rump length measures 3.9 cm, which correlates with an estimated gestational age of 10 weeks and 6 days which is within range of measurement error of the previously estimated gestational age of 10 weeks and 0 days based upon crown-rump length on the ultrasound from 24 days prior. heart motion is identified measuring 181 beats per minute (bpm) by M-mode Doppler. 3.1 x 1.3 x 1.0 cm hypoechoic subchorionic hematoma along the right side of the gestational sac. The right ovary measures 2.9 x 2.5 x 1.8 cm. The left ovary is not visualized. Vascular flow identified in the right ovary on color Doppler. There is no free fluid in the pelvis. IMPRESSION: 1. Single living fetus with heart rate of 181 bpm. 2. 3.1 x 1.3 x 1.0 cm subchorionic hematoma along the right side of the gestational sac. Reviewed, dictated and finalized at location A. IMPRESSION: 1. Single living fetus with heart rate of 181 bpm. 2. 3.1 x 1.3 x 1.0 cm subchorionic hematoma along the right side of the gestati onal sac.
== END 2024-11-07 10:51 | disposition home or self-care (01) ==
DX: O36.8910 Maternal care for other specified fetal problems, first trimester, not applicable or unspecified (principal); Z3A.00 Weeks of gestation of pregnancy not specified
CPT/HCPCS: 76801

== ENCOUNTER 2024-11-28 13:24 | Outpatient (CLI) | payer SELFPAY ==
--- NOTE | ~2024-11-28 | US_ITS ---
EXAMINATION: US OB <= 14 weeks fetus DATE: 11/28/2024 13:41 INDICATION: Follow-up subchorionic hematoma TECHNIQUE: Real-time transabdominal obstetric ultrasound. FINDINGS: Comparison to multiple prior studies sequentially, with oldest reviewed study dated 10/14/2024. The uterus measures 15 x 11.2 x 9.1 cm. There is an intrauterine gestational sac, with pole identified. The crown rump length measures 7.97 cm,. heart rate measures 163 BPM. No evidence for subchorionic hemorrhage on the current study. heart tones are identified measuring 163. IMPRESSION: 1. SL IUP with an EGA of 13 weeks, 0 days (EDC by initial ultrasound of 06/05/2025). 2: No evidence for subchorionic hemorrhage on current study. Reviewed, dictated and finalized at location O. IMPRESSION: 1. SL IUP with an EGA of 13 weeks, 0 days (EDC by initial ultrasound of 06/06/19 26). 2: No evidence for subchorionic hemorrhage on current study.
== END 2024-11-28 13:25 | disposition home or self-care (01) ==
PROVIDERS: PCP Obstetrics & Gynecology Gynecology; Visit Provider Obstetrics & Gynecology Gynecology
DX: O36.8910 Maternal care for other specified fetal problems, first trimester, not applicable or unspecified (principal); Z3A.13 13 weeks gestation of pregnancy
CPT/HCPCS: 76801